=== PATIENT | male | born 1950 | race Caucasian/White ===

== ENCOUNTER → 2019-08-08 13:46 | Outpatient (BNVA) | payer MEDICARE, SELFPAY | PROVIDERS: Family Provider Family Medicine; PCP Family Medicine; Visit Provider Nurse Practitioner Family | DX: C67.8 Malignant neoplasm of overlapping sites of bladder (principal); N28.9 Disorder of kidney and ureter, unspecified | CPT/HCPCS: 81001 ==

== ENCOUNTER 2019-12-18 15:19 | Emergency (ER) | payer MEDICARE, SELFPAY ==
[2019-12-18 15:36] VITALS: BMI 35.0
[2019-12-18 15:48] VITALS: BP 179/76; PULSE 66; RESP 18; TEMP 36.9; O2SAT 98
--- NOTE | 2019-12-18 15:56 | CTR_ITS ---
PROCEDURE INFORMATION: Exam: CT Abdomen And Pelvis Without Contrast Exam date and time: 12/18/2019 5:22 PM Age: 69 years old Clinical indication: Abdominal pain; Prior surgery; Additional info: Rlq pain TECHNIQUE: Imaging protocol: Computed tomography of the abdomen and pelvis without contrast. Radiation optimization: All CT scans at this facility use at least one of these dose optimization techniques: automated exposure control; mA and/or kV adjustment per patient size (includes targeted exams where dose is matched to clinical indication); or iterative reconstruction. COMPARISON: CT abdomen pelvis con [id number] 07/11/2019 12:20 PM RADIATION DOSE METRICS: Total DLP: 1486.01 mGy-cm FINDINGS: Lungs: Mild atelectasis. Liver: Normal. No mass. Gallbladder and bile ducts: Cholecystectomy. The bile ducts are normal. Pancreas: Atrophic pancreas. Spleen: Calcified granuloma in the spleen. Adrenals: Normal. No mass. 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 Stomach and bowel: Mild diverticulosis of the sigmoid colon. Scattered gas and stool throughout the colon to the rectum. Stomach and small bowel are unremarkable. Appendix: The appendix is normal. Intraperitoneal space: Unremarkable. No free air. No significant fluid collection. Retroperitoneal space: Multiple surgical clips in the right retroperitoneum. Vasculature: Unremarkable. No abdominal aortic aneurysm. Lymph nodes: Subcentimeter retroperitoneal and iliac chain lymph nodes are most likely reactive. Bladder: Unremarkable as visualized. Reproductive: Unremarkable as visualized. Bones/joints: Degenerative changes of the hips and spine. No compression fracture. Soft tissues: Fat containing left inguinal hernia. Diastasis rectus with atrophy of the right abdominus rectus muscles. CT/CT abdomen pelvis con [id number] IMPRESSION: 1. No acute abnormality identified in the abdomen or pelvis. 2. Mild diverticulosis of the distal colon. 3. Stool burden in the colon could indicate mild constipation in the right clinical setting. 4. Left renal cyst. This requires no follow-up. COMMENTS: Consistent with the [employer]'s Incidental Findings Committee white paper (J Am Julia Radiol 2018): Any incidental cystic renal lesion classified in this report as too small to characterize or simple appearing is likely a benign cyst. No follow-up imaging is recommended for these lesions per consensus recommendations based on imaging criteria. Radiation Dose CTDIVOL = (mGy): DLP = 1486.01 (mGy-cm)
--- NOTE | 2019-12-18 16:27 | ED_ITS ---
HPI - Abdominal Pain General: Chief Complaint: Abdominal Pain Stated Complaint: abd pain Time Seen by Provider: 12/18/19 15:39 History of Present Illness: HPI narrative: Patient is a 69 year old male presenting with right lower quadrant pain. he reports a dull pain for about 3 days and today it is sharp and severe. No fever, no vomiting, no diarrhea or constipation. No urinary symptoms. He reports radiation to his inner thigh on the right - not to his testicle. No pain in his back. He says it reminds him of when he had a hernia repair many years ago. Also has been having right arm pain for some time - has to have carpal tunnel surgery, but now he is having pain from his shoulder down the whole arm. He notes that he can't use his left arm so uses his right arm for everything and thinks he might have pulled something. 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 about 4 years ago) Onset (ago): day(s) (3) Pain Consistency: constant Location: RLQ Severity: severe Quality: stabbing Radiation: other (right inner thigh) Migration to: no migration Exacerbating factors: movement Relieving factors: nothing Associated Symptoms: Denies anorexia, change in bowel habits, change in stool character, chills, dysuria, fever(s), hematuria, nausea and vomiting Review of Systems General: Reports: 10 or more systems reviewed and unremarkable except in HPI and below Const: Denies: fever(s), chills or change in weight ENMT: Denies: odynophagia Card: Denies: chest pain or palpitations Resp: Denies: dyspnea, productive cough or non-productive cough GI: Reports: abdominal pain; Denies: nausea, vomiting, change in bowel habits or change in stool character : Denies: flank pain, difficulty urinating, dysuria or hematuria Musc: Reports: extremity pain (right arm); Denies: back pain Neuro: Denies: headache(s), numbness in extremities or weakness in extremities Taj/Lymph: Denies: easy bruising or easy bleeding PFSH ED PFSH: Medical History Lesion of left [place] kidney 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 Surgical History H/O right nephrectomy H/O transurethral destruction of bladder lesion TURBT Family History Father , at age 63 Cancer Social History Smoking and tobacco status: former smoker Alcohol intake: never Adopted: No Caregiver/support person: No Lives independently: No Household members: spouse Marital status: Current occupational status: disabled Physical Exam Const: COMMON NORMALS: no acute distress, patient oriented x3 and alert GENERAL APPEARANCE: cooperative and anxious NUTRITIONAL APPEARANCE: obese Eye: COMMON NORMALS: Equal, round and reactive pupils present and EOMs intact bilaterally GENERAL EYE: appearance normal, both eyes and all related structures PUPIL: Yes Equal, round and reactive pupils present Chest: COMMONS NORMALS: normal inspection of the chest Resp: COMMON NORMALS: normal respiratory effort, No use of accessory muscles and clear to auscultation bilaterally AUSCULTATION: clear to auscultation bilaterally Cardio: COMMON NORMALS: regular rate, regular rhythm and No murmurs present (Cardio) RATE: regular rate RHYTHM: regular rhythm GI: COMMON NORMALS: Normal to inspection, nondistended, normoactive bowel sounds present and No hepatosplenomegaly present PALPATION: Yes Tenderness to palpation present (GI) Details: RLQ (point tender) and Yes No hepatosplenomegaly present : COMMON NORMALS: Yes Testes normal, Yes scrotum normal and Yes No hernias present (tender in the right inguinal canal but no mass or hernia appreciated) Neuro: COMMON NORMALS: patient oriented x3 SENSORIUM/ORIENTATION: Yes alert Course ED course: Labs unremarkable - CT with no explanation for the RLQ pain. Normal appendix. no hernia. He continued to complain of pain - mainly his right arm at this time. Suspect a cervical radiculopathy based on his description of the pain - but could also be a rotator cuff issue. Reevaluation(s): Reevaluation #1: feeling better. Feels comfortable to go home. He is seeing his PCP soon regarding the arm pain. He will return if worsening of his abdominal symptoms. Time: 19:24 Vital Signs: Vital signs: Vital Signs Temperature 98.4 F 12/18/19 15:48 Pulse Rate 74 12/18/19 17:19 Respiratory Rate 18 12/18/19 18:42 Blood Pressure 150/93 12/18/19 17:19 Pulse Oximetry 98 12/18/19 18:42 MDM - Abdominal Pain Lab Data: Labs: Lab Results 12/18/19 12/18/19 12/18/19 Range/Units 16:15 16:15 16:15 WBC 8.6 (4.0-10.0) 10^3/ uL RBC 4.95 (4.1-5.3) 10^6/u L Hgb 14.2 (11.7-16.6) g/dL Hct 45.6 (42.0-52.0) % MCV 92.1 (80-94) fL MCH 28.7 (28.0-34.0) pg MCHC 31.1 (30.0-36.0) g/dL RDW 13.8 (12.1-15.1) % Plt Count 224 (130-400) 10^3/c mm MPV 11.3 H (7.4-10.4) fL Neut % (Auto) 75.3 % Lymph % (Auto) 13.2 % [place] % (Auto) 7.4 % Eos % (Auto) 3.0 % Baso % (Auto) 0.5 % Neut # (Auto) 6.5 (1.8-7.7) 10^3/u L Lymph # (Auto) 1.1 (0.8-4.8) 10^3/u L [place] # (Auto) 0.6 (0.2-0.9) 10^3/u L Eos # (Auto) 0.3 (0.0-0.8) 10^3/u L Baso # (Auto) 0.0 (0.0-0.1) 10^3/u L Nucleated RBC % (a uto) 0 % Nucleated RBCs # 0.0 /100WBC Sodium 136 (136-145) mmol/L Potassium 4.9 (3.5-5.1) mmol/L Chloride 101 (98-107) mmol/L Carbon Dioxide 24 (22-29) mmol/L Anion Gap 15.9 (5-19) BUN 19 (8-23) mg/dL Creatinine 1.2 (0.7-1.2) mg/dL GFR Calculation 60.2 L (90-130) mL/min Glucose 113 (65-115) mg/dL Calculated Osmolal ity 279 L (285-295) mOsm/k g Lactate 1.3 (0.5-2.2) mmol/L Calcium 8.8 (8.5-10.5) mg/dL Total Bilirubin 0.6 (0.15-1.2) mg/dL AST 21 (0-40) U/L ALT 25 (0-41) U/L Alkaline Phosphata se 74 (40-130) IU/L Total Protein 7.6 (6.6-8.7) g/dL Albumin 4.0 (3.5-5.2) g/dL Globulin 3.6 (1.3-4.6) g/dL Lipase 11 L (13-60) U/L Urine Color (Yellow) Urine Appearance (CLEAR) Urine pH (5-7) Ur Specific Gravit y (1.005-1.030) Urine Protein (Negative) Urine Glucose (UA) (Normal) Urine Ketones (Negative) Urine Blood (Negative) Urine Nitrate (Negative) Urine Bilirubin (NEGATIVE) Urine Urobilinogen (Negative) mg/dL Ur Leukocyte Caitie ase (Negative) 12/18/19 Range/Units 16:31 WBC (4.0-10.0) 10^3/ uL RBC (4.1-5.3) 10^6/u L Hgb (11.7-16.6) g/dL Hct (42.0-52.0) % MCV (80-94) fL MCH (28.0-34.0) pg MCHC (30.0-36.0) g/dL RDW (12.1-15.1) % Plt Count (130-400) 10^3/c mm MPV (7.4-10.4) fL Neut % (Auto) % Lymph % (Auto) % [place] % (Auto) % Eos % (Auto) % Baso % (Auto) % Neut # (Auto) (1.8-7.7) 10^3/u L Lymph # (Auto) (0.8-4.8) 10^3/u L [place] # (Auto) (0.2-0.9) 10^3/u L Eos # (Auto) (0.0-0.8) 10^3/u L Baso # (Auto) (0.0-0.1) 10^3/u L Nucleated RBC % (a uto) % Nucleated RBCs # /100WBC Sodium (136-145) mmol/L Potassium (3.5-5.1) mmol/L Chloride (98-107) mmol/L Carbon Dioxide (22-29) mmol/L Anion Gap (5-19) BUN (8-23) mg/dL Creatinine (0.7-1.2) mg/dL GFR Calculation (90-130) mL/min Glucose (65-115) mg/dL Calculated Osmolal ity (285-295) mOsm/k g Lactate (0.5-2.2) mmol/L Calcium (8.5-10.5) mg/dL Total Bilirubin (0.15-1.2) mg/dL AST (0-40) U/L ALT (0-41) U/L Alkaline Phosphata se (40-130) IU/L Total Protein (6.6-8.7) g/dL Albumin (3.5-5.2) g/dL Globulin (1.3-4.6) g/dL Lipase (13-60) U/L Urine Color Yellow (Yellow) Urine Appearance Clear (CLEAR) Urine pH 5 (5-7) Ur Specific Gravit y 1.010 (1.005-1.030) Urine Protein Neg (Negative) Urine Glucose (UA) Norm (Normal) Urine Ketones Negative (Negative) Urine Blood Neg (Negative) Urine Nitrate Negative (Negative) Urine Bilirubin Neg (NEGATIVE) Urine Urobilinogen Norm (Negative) mg/dL Ur Leukocyte Caitie ase Negative (Negative) Discharge Plan Discharge Patient Disposition: Home, Self-Care Clinical Impression: Arm pain, right Abdominal pain Qualifiers: Abdominal location: right lower quadrant Qualified Code(s): R10.31 - Right lower quadrant pain Condition: Stable Prescriptions: No Action tramadol 50 mg tablet 50 mg PO DAILY PRN (Reason: Pain) RF: 0 gabapentin 400 mg capsule 400 mg PO TID RF: 0 lisinopril 20 mg tablet 20 mg PO DAILY RF: 0 glipizide 5 mg PO BID RF: 0 baclofen 10 mg tablet 10 mg PO TID RF: 0 aspirin 162.5 mg capsule,extended release 24hr 162.5 mg PO QAM RF: 0 Discharge Orders: Discharge Order (Routine); Ordered 12/18/19 Ordered By: Lanny Jones Referrals: Terence Nunez [Primary Care Provider] - Discharge Diet: Usual diet Discharge Activity: Resume usual activity Patient Instructions: Cholecystitis (ED), Abdominal Pain (ED) Activity Restrictions/Additional Instructions: Return to the ED if fever, worse pain, vomiting or difficulty urinating. Coding Level of Care Code ED Maritime Pilot for Chg Fwd Exam Detailed
[2019-12-18 16:36] LABS: Basophils % 0.5 %; Eosinophils # 0.3 10^3/uL (0.0-0.8); Hematocrit 45.6 % (42.0-52.0); Hemoglobin 14.2 g/dL (11.7-16.6); Lymphocytes # 1.1 10^3/uL (0.8-4.8); Lymphocytes % 13.2 %; Mean Corpuscular HGB Conc 31.1 g/dL (30.0-36.0); Mean Corpuscular Hemoglobin 28.7 pg (28.0-34.0); Mean Corpuscular Volume 92.1 fL (80-94); Mean Platelet Volume 11.3 fL (7.4-10.4); Monocytes # 0.6 10^3/uL (0.2-0.9); Monocytes % 7.4 %; Neutrophils # 6.5 10^3/uL (1.8-7.7); Neutrophils % 75.3 %; Nucleated Red Blood Cells % 0 %; Platelet Count 224 10^3/cmm (130-400); Red Blood Count 4.95 10^6/uL (4.1-5.3); Red Cell Distribution Width 13.8 % (12.1-15.1); White Blood Count 8.6 10^3/uL (4.0-10.0)
[2019-12-18 16:44] LABS: Add Urine Microscopic? NO
[2019-12-18 16:46] VITALS: RESP 18; O2SAT 96
[2019-12-18] MEDS: HYDROmorphone 1 mg/mL INJ 1 mL 0.5 MG IVP ×2 (16:46→18:42)
[2019-12-18] MEDS: ondansetron 2 mg/ML SDV 2 mL 4 MG IVP (16:46)
[2019-12-18 16:48] LABS: Bilirubin Urine Neg (NEGATIVE); Blood Urine Neg (Negative); Glucose Urine UA Norm (Normal); Ketones Urine Negative (Negative); Leukocyte Esterase Urine Negative (Negative); Nitrate Urine Negative (Negative); Protein Urine Neg (Negative); Urine Appearance Clear (CLEAR); Urine Color Yellow (Yellow); Urobilinogen Urine Norm (Negative); pH Urine 5 (5-7)
[2019-12-18 16:51] LABS: Alanine Aminotransferase 25 U/L (0-41); Alkaline Phosphatase 74 IU/L (40-130); Anion Gap 15.9 (5-19); Aspartate Amino Transferase 21 U/L (0-40); Blood Urea Nitrogen 19 mg/dL (8-23); Calcium 8.8 mg/dL (8.5-10.5); Carbon Dioxide 24 mmol/L (22-29); Chloride 101 mmol/L (98-107); Globulin 3.6 g/dL (1.3-4.6); Glomerular Filtration Rate 60.2 mL/min (90-130); Glucose 113 mg/dL (65-115); Lipase 11 U/L (13-60); Osmolality Calculated 279 mOsm/kg (285-295); Potassium 4.9 mmol/L (3.5-5.1); Sodium 136 mmol/L (136-145); Total Bilirubin 0.6 mg/dL (0.15-1.2); Total Protein 7.6 g/dL (6.6-8.7)
[2019-12-18 16:52] LABS: Lactate (Lactic Acid level) 1.3 mmol/L (0.5-2.2)
[2019-12-18 17:19] VITALS: BP 150/93; PULSE 74; RESP 23; O2SAT 92
[2019-12-18 18:42] VITALS: RESP 18; O2SAT 98
[2019-12-18 19:34] VITALS: BP 189/74; PULSE 58; RESP 16
== END 2019-12-18 19:45 | disposition home or self-care (01) ==
PROVIDERS: Emergency Provider Emergency Medicine; PCP Family Medicine
DX: R10.31 Right lower quadrant pain (principal); M79.601 Pain in right arm; Z79.82 Long term (current) use of aspirin; Z79.84 Long term (current) use of oral hypoglycemic drugs; Z85.51 Personal history of malignant neoplasm of bladder; Z85.54 Personal history of malignant neoplasm of ureter; Z90.5 Acquired absence of kidney; Z87.891 Personal history of nicotine dependence
CPT/HCPCS: 12345; 36415; 74176; 80053; 81003; 83605; 83690; 85025; 96374; 96375; 96376; 99282; 99283; J1170; J2405

== ENCOUNTER 2021-01-29 14:31 | Outpatient (CLI) | payer MEDICARE, SELFPAY ==
--- NOTE | 2021-01-29 14:30 | XR_ITS ---
WS: [id number] Chest 2 views, 01/29/2021 Clinical Data: BLADDER CANCER Comparison: AP and lateral chest, 10/27/2018. Findings: No nodules, masses or effusions are seen. The heart is normal. The pulmonary vascularity is not increased. No pneumonia or pneumothorax is seen. Right diaphragm is slightly elevated. The aorti c arch and descending aorta show tortuosity. XR/XR chest 2V* [id number] Impression: Atherosclerosis.
[2021-01-29 15:38] LABS: Basophils # 0.1 10^3/uL (0.0-0.1); Basophils % 0.6 %; Eosinophils # 0.5 10^3/uL (0.0-0.8); Eosinophils % 5.4 %; Hematocrit 45.6 % (42.0-52.0); Hemoglobin 14.2 g/dL (11.7-16.6); Lymphocytes # 1.1 10^3/uL (0.8-4.8); Lymphocytes % 12.6 %; Mean Corpuscular HGB Conc 31.1 g/dL (30.0-36.0); Mean Corpuscular Hemoglobin 28.2 pg (28.0-34.0); Mean Corpuscular Volume 90.7 fL (80-94); Monocytes # 0.7 10^3/uL (0.2-0.9); Monocytes % 7.8 %; Neutrophils # 6.28 10^3/uL (1.8-7.7); Neutrophils % 73.1 %; Nucleated Red Blood Cells % 0 %; Platelet Count 238 10^3/cmm (130-400); Red Blood Count 5.03 10^6/uL (4.1-5.3); Red Cell Distribution Width 13.5 % (12.1-15.1); White Blood Count 8.6 10^3/uL (4.0-10.0)
[2021-01-29 16:06] LABS: Alanine Aminotransferase 14 U/L (0-41); Albumin Level 3.8 g/dL (3.5-5.2); Alkaline Phosphatase 70 IU/L (40-130); Anion Gap 11.9 (5-19); Aspartate Amino Transferase 15 U/L (0-40); Blood Urea Nitrogen 18 mg/dL (8-23); Calcium 8.5 mg/dL (8.5-10.5); Carbon Dioxide 28 mmol/L (22-29); Chloride 102 mmol/L (98-107); Globulin 3.5 g/dL (1.3-4.6); Glomerular Filtration Rate 50.2 mL/min (90-130); Glucose 140 mg/dL (65-115); Osmolality Calculated 288 mOsm/kg (285-295); Potassium 4.9 mmol/L (3.5-5.1); Sodium 137 mmol/L (136-145); Total Bilirubin 0.7 mg/dL (0.15-1.2); Total Protein 7.3 g/dL (6.6-8.7)
== END 2021-01-29 14:32 | disposition home or self-care (01) ==
LOC: RAD 14:41
PROVIDERS: PCP Family Medicine; Visit Provider Urology
DX: C67.8 Malignant neoplasm of overlapping sites of bladder (principal); I70.90 Unspecified atherosclerosis
CPT/HCPCS: 36415; 71046; 80053; 81003; 85025

== ENCOUNTER 2022-04-27 15:02 | Emergency (ER) | payer OTHER, SELFPAY ==
[2022-04-27 15:15] VITALS: BP 158/80; PULSE 63; RESP 16; TEMP 36.7; O2SAT 99; BMI 35.0
--- NOTE | 2022-04-27 15:31 | XR_ITS ---
WS: [id number] Exam: XR wrist RT min 3V* [id number] Date/Time of Exam: 04/27/2022 3:33 PM Reason For Exam: Fall No fracture or dislocation. Articular relationships are intact. Minimal dorsal soft tissue swelling. A partially visualized osseous lesion seen in the head of the third metacarpal may represent an encho ndroma. XR/XR wrist RT min 3V* [id number] IMPRESSION: 1. No acute wrist fracture or dislocation.
--- NOTE | 2022-04-27 15:39 | W.ED.EXTPRO ---
HPI - Extremity Problem General: Chief complaint: Extremity Injury, Upper Stated complaint: Right wrist pain Time Seen by Provider: 04/27/22 15:34 History of Present Illness: Patient is a 72-year-old male comes to the ED with right wrist pain. Patient says approximately 2 months ago he had a fall while transferring from his wheelchair. He fell down landing with his right arm extended. He thought he sprained his right wrist so he has been icing it and taking his prescribed tramadol to help with pain. He was not seen by any provider after injury. He states that his right wrist is still bothering him quite a bit and thinks he might of done more than sprained it. He rates his pain currently an 8 out of 10. He says pain worsens in right wrist and arm when he does any range of motion with right wrist. Denies any other injuries. Associated symptoms: Deny chest pain, fever(s) or rash Review of Systems Const: Denies: fever(s), chills or fatigue Eyes: Denies: change in vision or eye discomfort ENMT: Denies: throat pain, odynophagia, nasal discharge or nasal congestion Card: Denies: chest pain, palpitations, edema, swelling of feet/ankles, dyspnea on exertion or orthopnea Resp: Denies: dyspnea, productive cough or non-productive cough GI: Denies: abdominal pain, nausea, vomiting, diarrhea, constipation or hematochezia : Denies: flank pain, difficulty urinating, dysuria or hematuria Musc: Reports: extremity pain (Right wrist); Denies: neck pain, back pain or extremity swelling Skin/Breast: Denies: rash or new lesions Neuro: Denies: headache(s), numbness in extremities or weakness in extremities PFSH ED PFSH: Medical History Lesion of left [place] kidney 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 Social History Smoking and tobacco status: never smoked Alcohol intake: never Adopted: No Caregiver/support person: No Lives independently: No Marital status: Current occupational status: disabled History of recent travel: No Physical Exam Const: COMMON NORMALS: no acute distress, patient oriented x3 and alert GENERAL APPEARANCE: cooperative HENMT: COMMON NORMALS: normocephalic HEAD & SCALP: normocephalic MOUTH: Normal oral and palatal mucosa present THROAT: posterior oropharynx normal and uvula midline Neck/C-Spine: COMMON NORMALS: supple GENERAL: Yes normal visual inspection Resp: COMMON NORMALS: normal respiratory effort, No retractions, No use of accessory muscles and clear to auscultation bilaterally AUSCULTATION: clear to auscultation bilaterally Cardio: COMMON NORMALS: regular rate, regular rhythm, S1 normal heart sound present, S2 normal heart sound present, No gallops present (Cardio), No clicks present (Cardio), No murmurs present (Cardio) and Peripheral pulses 2+ throughout RATE: regular rate RHYTHM: regular rhythm HEART SOUNDS: S1 normal heart sound present and S2 normal heart sound present PERIPHERAL PULSES: Peripheral pulses 2+ throughout GI: COMMON NORMALS: Normal to inspection, nondistended, normoactive bowel sounds present, Soft to palpation, non-tender and no masses PALPATION: Yes Soft to palpation : COMMON NORMALS: Yes no CVA tenderness BLADDER/KIDNEY EXAM: Yes no CVA tenderness Back/Pelvis: COMMON NORMALS: no CVA tenderness Extremity: NARRATIVE EXTREMITY EXAM: Right wrist?no visible deformity noted. Neurovascular intact distally. Full range of motion. Tenderness to palpation throughout wrist. Neuro: COMMON NORMALS: patient oriented x3 SENSORIUM/ORIENTATION: Yes alert GAIT: Yes Normal gait present Skin: GENERAL SKIN EXAM: dry skin Course Vital Signs: Vital signs: Vital Signs Temperature 98.0 F 04/27/22 15:15 Pulse Rate 63 04/27/22 15:15 Respiratory Rate 16 04/27/22 15:15 Blood Pressure 158/80 04/27/22 15:15 Pulse Oximetry 99 04/27/22 15:15 Oxygen Delivery Me thod 04/27/22 15:15 MDM - Extremity (Nontraumatic) Medical Decision Making Patient is a 72-year-old male who had a fall approximately 2 months ago number he landed on right arm hurting right wrist. Denies any head trauma or loss of consciousness at that time. He did not get checked out and thought he just sprained his wrist. He has continued to have right wrist pain for the past 2 months. Vitals are stable. Exam of right wrist shows no deformity, erythema or swelling. He has some tenderness throughout the wrist. Neurovascular tact. Full range of motion. X-ray of right wrist showed no acute fractures or dislocations. He was diagnosed with right wrist pain and discharged home. Told to follow-up with PCP within the next week for reevaluation. Return to ED precautions given. Patient understood and agreed with plan. Lab Data Radiology Impressions Wrist X-Ray 04/27/22 15:31 IMPRESSION: 1. No acute wrist fracture or dislocation. Discharge Plan Discharge Patient Disposition: Home Clinical Impression: Right wrist pain Condition: Stable Prescriptions: No Action tramadol 50 mg tablet 50 mg PO DAILY PRN (Reason: Pain) gabapentin 400 mg capsule 400 mg PO TID lisinopril 20 mg tablet 20 mg PO DAILY glipizide 5 mg PO BID Rx Instructions: 1 BID baclofen 10 mg tablet 10 mg PO TID aspirin 162.5 mg capsule,extended release 24hr 162.5 mg PO QAM Januvia 100 mg tablet 100 mg PO DAILY sildenafil [Viagra] 100 mg tablet 100 mg PO DAILY PRN Rx Instructions: administer 30 minutes to 4 hours before activity cephalexin 500 mg capsule 500 mg PO BID Qty: 30 2RF Discharge Orders: Discharge ED (Routine); Ordered 04/27/22 Ordered By: Marino Wadsworth Referrals: Surekha Lockhart FNP [Primary Care Provider] - Discharge Diet: Regular Discharge Activity: Increase activity as tolerated Patient Instructions: Wrist Injury (ED), Wrist Sprain (ED) Activity Restrictions/Additional Instructions: Follow-up with medical provider as directed in the next 5-7 days for reevaluation. Continue taking previously prescribed meds for pain. Return to the ER or your medical provider if condition worsens. Please read and understand discharge instructions. Thank you for choosing [facility] for your healthcare needs today. Please realize this is an emergency room and that we are providing you with a medical screening exam and this may not be complete and all inclusive of all the testing and or work up that you may need to determine your ailment or severity of your illness. It is very important that you follow up as instructed or that you return to the Emergency Department should you have concerns or if your condition changes or worsens in any way. Coding Level of Care Code ED Marketing Campaign Analyst for Elva Lopez Exam Comprehensive
== END 2022-04-27 16:38 | disposition home or self-care (01) ==
PROVIDERS: Emergency Provider Physician Assistant; PCP Nurse Practitioner Family
DX: M25.531 Pain in right wrist (principal); Z79.84 Long term (current) use of oral hypoglycemic drugs; Z79.82 Long term (current) use of aspirin; Z85.51 Personal history of malignant neoplasm of bladder; Z85.038 Personal history of other malignant neoplasm of large intestine; G82.50 Quadriplegia, unspecified; E11.22 Type 2 diabetes mellitus with diabetic chronic kidney disease; N18.30 Chronic kidney disease, stage 3 unspecified; E11.59 Type 2 diabetes mellitus with other circulatory complications; E78.2 Mixed hyperlipidemia; I25.10 Atherosclerotic heart disease of native coronary artery without angina pectoris
CPT/HCPCS: 73110; 99204; 99283

== ENCOUNTER → 2022-06-16 11:16 | Outpatient (BNVA) | payer OTHER, SELFPAY | PROVIDERS: PCP Nurse Practitioner Family; Referring Provider Nurse Practitioner Family; Visit Provider Podiatrist Foot & Ankle Surgery | DX: E11.42 Type 2 diabetes mellitus with diabetic polyneuropathy (principal); L60.3 Nail dystrophy; L60.8 Other nail disorders; L84 Corns and callosities | CPT/HCPCS: 11056; 11721; 99204 ==

== ENCOUNTER → 2022-11-04 13:58 | Outpatient (BNVA) | payer OTHER, SELFPAY | PROVIDERS: PCP Nurse Practitioner Family; Visit Provider Thoracic Surgery (Cardiothoracic Vascular Surgery) | DX: I96 Gangrene, not elsewhere classified (principal); E11.622 Type 2 diabetes mellitus with other skin ulcer; L97.812 Non-pressure chronic ulcer of other part of right lower leg with fat layer exposed; Z79.899 Other long term (current) drug therapy; E78.2 Mixed hyperlipidemia | CPT/HCPCS: 36415; 80053; 82306; 82607; 82746; 83090; 83735; 83921; 84439; 84443; 84481; 85025; 99212 ==

== ENCOUNTER → 2023-01-18 12:46 | Outpatient (BNVA) | payer OTHER, SELFPAY | PROVIDERS: PCP Nurse Practitioner Family; Visit Provider Internal Medicine Cardiovascular Disease | DX: E11.42 Type 2 diabetes mellitus with diabetic polyneuropathy (principal); E78.2 Mixed hyperlipidemia; N31.9 Neuromuscular dysfunction of bladder, unspecified; N28.9 Disorder of kidney and ureter, unspecified; Z79.4 Long term (current) use of insulin | CPT/HCPCS: 99204 ==

== ENCOUNTER 2023-02-09 11:22 | Outpatient (CLI) | payer OTHER, SELFPAY ==
--- NOTE | 2023-02-09 12:15 | USCV_ITS ---
Miguel Nathan Age: 72 Gender: M : 1950 Exam Date: 02/09/2023 11:51 Ordering Phys: Gulshan Camacho MD (Andy) ([email or web address]) Technologist: Exam Location: [facility] Indication: HISTORY: PROCEDURES: Bilateral duplex Venous Insufficiency study of the Deep and Superficial systems was carried out according to normal protocol with the patient in supine positon for deep system and dependent position for the superficial system. FINDINGS: Left femoral and popliteal veins were found to be partially compressible with a sluggish blood flow. Spectral analysis of Doppler signals demonstrates normal response to compression maneuvers indicating patency without obstruction in the other vessels. Reflux determinations were made with the patient in the dependent position, the weight being on the contralateral leg. There is significant bilateral reflux worse on the right. CONCLUSIONS 1. 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 2. Significant venous reflux of greater than 500 ms were noted at the greater saphenous vein distal to the saphenofemoral junction, proximal and mid segments on the right side. The segments were greater than 1 cm deep from the surface. The segments were measuring 0.71 to 0.89 cm in diameter. 3. Significant venous reflux of greater than 500 ms were noted at the below-knee segment of the greater saphenous vein on the left side. The segment was found to be very superficial.(0.49 cm deep from the surface) Dr Edwin Arnett MD [facility] (Electronically Signed) Final Date: 11 February 2023 22:52 S
== END 2023-02-09 11:23 | disposition home or self-care (01) ==
PROVIDERS: PCP Nurse Practitioner Family; Visit Provider Thoracic Surgery (Cardiothoracic Vascular Surgery)
DX: E11.42 Type 2 diabetes mellitus with diabetic polyneuropathy (principal); L60.3 Nail dystrophy; L60.8 Other nail disorders; L84 Corns and callosities; Z79.4 Long term (current) use of insulin; I82.403 Acute embolism and thrombosis of unspecified deep veins of lower extremity, bilateral
CPT/HCPCS: 11056; 11721; 93970; 99212

== ENCOUNTER 2023-02-09 13:18 | Emergency (ER) | payer OTHER, SELFPAY ==
[2023-02-09 13:49] VITALS: BP 160/84; PULSE 67; RESP 16; TEMP 36.8; O2SAT 99; BMI 34.7
--- NOTE | 2023-02-09 14:48 | W.ED.EXTPRO ---
HPI - Extremity Problem General: Chief complaint: Extremity Problem,Nontraumatic Stated complaint: Left leg pain, and swelling, Ayden Tapia Time Seen by Provider: 02/09/23 14:24 History of Present Illness: Patient ultrasound this morning that showed he had a blood clot in his left upper thigh. Patient was sent here for further evaluation and treatment. [facility] and would like any further treatment and evaluation at the [facility] if possible. Patient says he was sent by Dr. Camacho for the ultrasound secondary to venous insufficiency and vascular disease. Patient says both he has a history of both feet going blue and purple and and being really cold. She does not currently have any symptoms. Patient is on no anticoagulation and has no history of prior DVTs. Patient is insulin-dependent diabetic. 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 Social History Smoking and tobacco status: never smoked Alcohol intake: never Substance/Drug Use: never Adopted: No Caregiver/support person: No Lives independently: No Marital status: Current occupational status: disabled Physical Exam Const: COMMON NORMALS: no acute distress, average body habitus, patient oriented x3, no limitations, healthy appearing, alert and well nourished HENMT: COMMON NORMALS: normocephalic, atraumatic, hearing grossly normal bilaterally, external ears normal, Normal external nose present and moist oral mucous membranes HEAD & SCALP: normocephalic and atraumatic NOSE: Normal external nose present EXTERNAL EAR: Yes external ears normal Neck/C-Spine: COMMON NORMALS: full ROM, no lymphadenopathy, supple, no meningeal signs, no JVD and Thyroid normal THYROID: Thyroid normal Lymph: LYMPHATIC: no lymphadenopathy noted Chest: COMMONS NORMALS: normal inspection of the chest and normal palpation of entire chest wall Resp: COMMON NORMALS: normal respiratory effort, No retractions, No use of accessory muscles and clear to auscultation bilaterally AUSCULTATION: clear to auscultation bilaterally Cardio: COMMON NORMALS: no JVD, regular rate, regular rhythm, S1 normal heart sound present, S2 normal heart sound present, No gallops present (Cardio), No clicks present (Cardio) and No murmurs present (Cardio) RATE: regular rate RHYTHM: regular rhythm HEART SOUNDS: S1 normal heart sound present and S2 normal heart sound present GI: COMMON NORMALS: Normal to inspection, nondistended, normoactive bowel sounds present, Soft to palpation, non-tender, No hepatosplenomegaly present and no masses PALPATION: Yes Soft to palpation and Yes No hepatosplenomegaly present Neuro: COMMON NORMALS: patient oriented x3 SENSORIUM/ORIENTATION: Yes alert MENINGEAL SIGNS: Yes no meningeal signs Course Vital Signs: Vital signs: Vital Signs Temperature 98.2 F 02/09/23 13:49 Pulse Rate 67 02/09/23 13:49 Respiratory Rate 16 02/09/23 13:49 Blood Pressure 160/84 02/09/23 13:49 Pulse Oximetry 99 02/09/23 13:49 Oxygen Delivery Me thod Room Air 02/09/23 13:49 MDM - Extremity (Nontraumatic) Medical Decision Making Patient presents to the ER with complaints of left DVT and upper thigh. motor vehicle technician came over and told me that patient does have a thrombus in his left femoral vein down to his popliteal vein. But the study was done as a different kind of study will not be read till after 5 PM tonight. We will start patient on Xarelto with a coupon so he can get his first month for free until the [facility] decides which medicine they want him on and gets him that medicine. Patient is comfortable with this idea. Patient will have the further work-up per the [facility] such as carotid artery ultrasound, echo, etc. Differential Diagnosis Likely deep vein thrombosis of lower extremity; Unlikely herpes zoster, gout, cellulitis, superficial thrombophlebitis, deep venous thrombosis of upper extremity or lower extremity edema Medical Records I reviewed the patient's medical records. Lab Data I reviewed the patient's lab results. Discharge Plan Discharge Patient Disposition: Home Clinical Impression: Deep vein thrombosis of lower extremity Qualifiers: Affected thrombotic vein of extremity: femoral Chronicity: acute Laterality: left Qualified Code(s): I82.412 - Acute embolism and thrombosis of left femoral vein Condition: Stable Prescriptions: New Xarelto 15 mg tablet 15 mg PO BID 21 Days Qty: 42 0RF Rx Instructions: must administer with a meal/food No Action tramadol 50 mg tablet 50 mg PO DAILY PRN (Reason: Pain) baclofen 10 mg tablet 10 mg PO TID insulin glargine [Lantus U-100 Insulin] 100 unit/mL solution 65 unit SUBCUT DAILY glipizide 10 mg tablet PO cholecalciferol (vitamin D3) 1,250 mcg (50,000 unit) capsule PO gabapentin 800 mg tablet PO Discharge Orders: Discharge ED (Routine); Ordered 02/09/23 Ordered By: Allan Hensley Referrals: Surekha Lockhart, WELD INSPECTOR [Primary Care Provider] - 1 week Patient Instructions: Deep Vein Thrombosis (ED) Activity Restrictions/Additional Instructions: Please take your medicine as directed, please use the coupon card provided to you in ER. Please follow[facility] with the [facility] for further evaluation and treatment of your DVT. Coding Level of Care Code ED Emergency Manager for Elva Lopez
== END 2023-02-09 15:39 | disposition home or self-care (01) ==
PROVIDERS: Emergency Provider Emergency Medicine; PCP Nurse Practitioner Family
DX: I82.412 Acute embolism and thrombosis of left femoral vein (principal)
CPT/HCPCS: 99283

== ENCOUNTER 2023-03-01 15:44 | Outpatient (CLI) | payer OTHER, SELFPAY ==
--- NOTE | 2023-03-01 | USCV_ITS ---
Jac Miguel Age: 72 Gender: M : 1950 Exam Date: 03/01/2023 16:25 Ordering Phys: Cheryl Hernandez TRACK HELPER Technologist: BOB [place] [facility] [place]: Stenosis Risk Factors: Previous Vascular Surgery: Right Brachial BP: / Left Brachial BP: / Right Left Velocity (cm/s) Spectral Plaque Velocity (cm/s) Spectral Plaque Syst/Diast Broadening Syst/Diast Broadening 64.60/ 9.10 Prox CCA 130.10/ 17.10 71.00/ 9.10 Mid CCA 94.70 / 11.80 72.20/ 12.40 Distal CCA 79.20 / 11.70 48.00/ 9.20 Prox ICA 110.40/ 17.10 76.10/ 12.40 Mid ICA 70.70 / 17.10 57.50/ 13.20 Distal ICA 82.30 / 21.80 145.50 ECA 123.60 1.05 ICA/CCA 0.85 Antegrade Vertebral Antegrade 21.40/ 5.60 cm/s 37.90/ 8.50 cm/s Tri Subclavian Tri 97.40 192.6 0 FINDINGS Comparison:. 02/23/15. Limited by body habitus. No significant elevation of systolic or diastolic velocities. Waveforms are normal. No significant amount of calcified plaque or intimal thickening identified. CONCLUSIONS Bilateral ICA stenosis less than 50%. Limited exam by body habitus. Dr. Zahida Simmons DO (Electronically Signed) Final Date: 02 March 2023 10:01 S
--- NOTE | 2023-03-01 16:08 | USR_ITS ---
PROCEDURE INFORMATION: Exam: US Duplex Bilateral Lower Extremity Arteries Exam date and time: 03/01/2023 4:53 PM Age: 72 years old Clinical indication: Pain; Leg, lower; Bilateral; Additional info: Pain, redness, non-healing ulcers TECHNIQUE: Imaging protocol: Real-time ultrasound scan of the arteries of the bilateral lower extremities with 2-D la scale, color Doppler flow and spectral waveform analysis. Images documented and saved. COMPARISON: US renal BI with PV bladder 08/01/2019 10:23 AM FINDINGS: Right common femoral artery: No occlusion or significant stenosis. Normal waveform. Right superficial femoral artery: No occlusion or significant stenosis. Normal waveform. Right popliteal artery: No occlusion or significant stenosis. Normal waveform. Right calf/foot arteries: No occlusion or significant stenosis in the visualized arteries. Normal waveforms. Dorsalis pedis artery is patent. Left common femoral artery: No occlusion or significant stenosis. Normal waveform. Left superficial femoral artery: No occlusion or significant stenosis. Normal waveform. Left popliteal artery: No occlusion or significant stenosis. Normal waveform. Left calf/foot arteries: No occlusion or significant stenosis in the visualized arteries. Normal waveforms. Dorsalis pedis artery is patent. Right MARY: 1.1. Normal. Left MARY was not measured because of the history of recent left lower extremity DVT. US/[place] [id number] IMPRESSION: No stenosis or occlusion.
== END 2023-03-01 15:45 | disposition home or self-care (01) ==
PROVIDERS: PCP Nurse Practitioner Family; Visit Provider Nurse Practitioner Family
DX: E11.42 Type 2 diabetes mellitus with diabetic polyneuropathy (principal); L97.911 Non-pressure chronic ulcer of unspecified part of right lower leg limited to breakdown of skin; M79.605 Pain in left leg
CPT/HCPCS: 93880; 93925

== ENCOUNTER 2023-03-12 11:01 | Outpatient (CLI) | payer OTHER, SELFPAY ==
--- NOTE | 2023-03-12 11:11 | USCV_ITS ---
Miguel Nathan Age: 72 Gender: M : 1950 Exam Date: 03/12/2023 12:02 Ordering Phys: Cheryl HernandezP WALL SCRAPER Technologist: JANET Exam Location: [facility] [place] Indication: PRIOR DVT IN LT LEG BP: 126 / 73 HR: 58 Rhythm: Sinus Technical Quality: Adequate MEASUREMENTS (Male / Female) Normal Values 2D ECHO LV Diastolic Diameter PLAX 4.9 cm 4.2 - 5.9 / 3.9 - 5.3 cm LV Systolic Diameter PLAX 3.4 cm IVS Diastolic Thickness 1.4 cm 0.6 - 1.0 / 0.6 - 0.9 cm IVS Systolic Thickness 1.6 cm LVPW Diastolic Thickness 1.3 cm 0.6 - 1.0 / 0.6 - 0.9 cm LVPW Systolic Thickness 1.8 cm LVOT Diameter 2.2 cm LV Ejection Fraction 2D Teich 57.8 % LV Ejection Fraction MOD 2C 37.8 % LV Ejection Fraction 2C AL 39.3 % LA Diameter 3.6 cm LA Width 2.9 cm LA Height 4.5 cm RA Width 3.8 cm RA Height 4.5 cm Aorta at Sinotubular Diameter 3.2 cm M-MODE Aortic Annulus Diameter 3.4 cm LA Ao Ratio MM 1.4 MV E Point Septal Separation 0.7 cm DOPPLER AV Peak Velocity 145.3 cm/s LVOT Peak Velocity 72.0 cm/s AV Area Cont Eq vti 1.9 cm squared AV Area Cont Eq pk 1.8 cm squared MV Area PHT 2.4 cm squared Mitral E to A Ratio 0.8 MV E' Velocity 34.5 cm/s Mitral E to MV E' Ratio 11.4 Mitral E to LV E' Lateral Ratio 10.0 Mitral E to LV E' Septal Ratio 13.7 TR Peak Velocity 137.8 cm/s TR Peak Gradient 7.6 mmHg TR Mean Velocity 86.9 cm/s TR Mean Gradient 3.5 mmHg TR Velocity Time Integral 36.2 cm TV Peak E Velocity 49.0 cm/s Right Atrial Pressure 3.0 mmHg Pulmonary Artery Systolic Pressu 10.6 mmHg RV Acceleration Time 0.2 s RV Ejection Time 0.3 s RV AcT/ET 0.5 FINDINGS Left Ventricle Normal left ventricular size and systolic function, EF 55%. (visual). No gross wall motion normalities Some features of grade 1 left-ventricular diastolic dysfunction. Right Ventricle Possibly of normal size and ejection fraction Right Atrium Not visualized well Left Atrium Normal left atrial size. Mitral Valve No gross abnormalities noted Aortic Valve No gross abnormalities noted Tricuspid Valve Tricuspid valve not well visualized. Pulmonic Valve Pulmonic valve not well visualized. Pericardium No pericardial effusion. Aorta Normal aortic annulus size. IVC Inferior vena cava not visualized. CONCLUSIONS Technically very difficult study. Study was with the patient sitting on the chair-no apical windows Possibly normal LV size ejection fraction of around 55%. No gross wall motion normalities Some features of grade 1 left-ventricular diastolic dysfunction. The right-sided structures could not be visualized well No pericardial effusion The right ventricular appears to be of normal size and ejection fraction The aortic and mitral valve morphology appears to be within normal limits Dr Edwin Arnett MD FAC (Electronically Signed) Final Date: 12 March 2023 19:52 S
== END 2023-03-12 11:02 | disposition home or self-care (01) ==
LOC: RAD 11:01
PROVIDERS: PCP Nurse Practitioner Family; Visit Provider Nurse Practitioner Family
DX: I82.402 Acute embolism and thrombosis of unspecified deep veins of left lower extremity (principal)
CPT/HCPCS: 93306

== ENCOUNTER 2023-04-09 13:04 | Outpatient (CLI) | payer OTHER, SELFPAY ==
--- NOTE | 2023-04-09 13:35 | USCV_ITS ---
Miguel Nathan Age: 73 Gender: M : 1950 Exam Date: 04/09/2023 13:58 Ordering Phys: Cheryl Hernandez CASH APPLICATIONS REPRESENTATIVE CASH APPLICATIONS REPRESENTATIVE Technologist: Exam Location: [facility] [place] Indication: HISTOY OF DVT. PT REFUSED OPTISON CONTRAST BP: 130 / 75 HR: 57 Rhythm: Sinus Technical Quality: Poor MEASUREMENTS (Male / Female) Normal Values 2D ECHO LVOT Diameter 2.0 cm LV Ejection Fraction MOD 2C 56.8 % LV Ejection Fraction 2C AL 56.2 % LA Diameter 3.4 cm LA Width 4.4 cm LA Height 4.2 cm RA Width 3.7 cm RA Height 5.0 cm Aorta at Sinotubular Diameter 2.6 cm M-MODE Aortic Annulus Diameter 3.2 cm LA Ao Ratio MM 1.0 MV E Point Septal Separation 0.9 cm DOPPLER AV Peak Velocity 136.0 cm/s LVOT Peak Velocity 100.0 cm/s AV Area Cont Eq vti 2.5 cm squared AV Area Cont Eq pk 2.3 cm squared MV Peak Velocity 95.0 cm/s MV Area PHT 2.7 cm squared Mitral E to A Ratio 0.9 MV E' Velocity 44.5 cm/s Mitral E to MV E' Ratio 8.3 Mitral E to LV E' Lateral Ratio 6.9 Mitral E to LV E' Septal Ratio 10.8 TR Peak Velocity 152.2 cm/s TR Peak Gradient 9.3 mmHg TR Mean Velocity 105.4 cm/s TR Mean Gradient 5.1 mmHg TR Velocity Time Integral 44.8 cm TV Peak E Velocity 53.0 cm/s Right Atrial Pressure 8.0 mmHg Pulmonary Artery Systolic Pressu 17.3 mmHg PV Peak Velocity 127.0 cm/s RV Acceleration Time 0.1 s RV Ejection Time 0.4 s RV AcT/ET 0.3 FINDINGS Left Ventricle Examination is technically very poor. Only limited parasternal views are available. This also limits the Doppler interrogation. The ventricular size and function are probably within normal limits as seen by these limited views. Diastolic function cannot be determined. Right Ventricle Right ventricle is not seen. Right Atrium The right atrium is normal in size. Left Atrium The left atrium is normal in size. Mitral Valve Mitral valve was seen in only the parasternal long axis view. There is no obvious mitral regurgitation. Aortic Valve Aortic valve is seen only in the parasternal long axis view. There is no obvious aortic stenosis or regurgitation. Tricuspid Valve Tricuspid valve was not visualized. Pulmonic Valve Pulmonic valve was not visualized. Pericardium Normal pericardium without effusion. Aorta Only the proximal aorta is noted. It is normal in size. IVC IVC is not visualized. CONCLUSIONS Examination is technically very poor. Only limited parasternal views are available. This also limits the Doppler interrogation. The ventricular size and function are probably within normal limits as seen by these limited views. Diastolic function cannot be determined. Patient was offered echo contrast in the form of Optison on. He declined. Previous echo was done less than a month ago. It was similarly poor in quality. No obvious change. Dr. Jeremy Conroy MD (Electronically Signed) Final Date: 09 April 2023 15:39 S
== END 2023-04-09 13:05 | disposition home or self-care (01) ==
PROVIDERS: PCP Family Medicine; Visit Provider Nurse Practitioner Family
DX: Z01.89 Encounter for other specified special examinations (principal); Z86.718 Personal history of other venous thrombosis and embolism
CPT/HCPCS: 93306

== ENCOUNTER → 2023-06-09 13:16 | Outpatient (BNVA) | payer OTHER, SELFPAY | PROVIDERS: PCP Family Medicine; Visit Provider Podiatrist Foot & Ankle Surgery | DX: E11.42 Type 2 diabetes mellitus with diabetic polyneuropathy (principal); L60.3 Nail dystrophy; L60.8 Other nail disorders; L84 Corns and callosities; Z79.4 Long term (current) use of insulin | CPT/HCPCS: 11056; 11721 ==

== ENCOUNTER → 2024-02-01 10:30 | Outpatient (BNVA) | payer OTHER, SELFPAY | PROVIDERS: PCP Family Medicine; Visit Provider Podiatrist Foot & Ankle Surgery | DX: E11.42 Type 2 diabetes mellitus with diabetic polyneuropathy (principal); L60.3 Nail dystrophy; L60.8 Other nail disorders; L84 Corns and callosities; Z79.4 Long term (current) use of insulin | CPT/HCPCS: 11056; 11721 ==

== ENCOUNTER 2024-09-22 15:05 | Outpatient (CLI) | payer OTHER, SELFPAY ==
[2024-09-22 15:26] LABS: Bilirubin Urine Negative (Negative); Blood Urine 3+ (Negative); Glucose Urine UA Negative (Normal); Ketones Urine Negative (Negative); Leukocyte Esterase Urine 3+ (Negative); Nitrate Urine Positive (Negative); Protein Urine 3+ (Negative); Specific Gravity, Urine 1.019 (1.005-1.030); Urine Appearance Turbid (CLEAR); pH Urine 8.5 (5-7)
[2024-09-22 16:24] LABS: Add Urine Microscopic? YES; RBC Urine 25-40 /hpf (0-2); UA Manual Slide Review YES; UA Slide Review UA Slide Review Perf; Urine Color Red (Yellow); WBC Urine 51-100 /hpf (0-5)
[2024-09-22 16:25] LABS: Add Urine Culture? No; Bacteria Urine 2+ /hpf; Calcium Oxalate Crystals Urine 25-40 /hpf; Hyaline Casts Urine 0-4 /lpf; Squamous Epithelial Cell Urine 0-4 /hpf (0-5)
== END 2024-09-22 15:06 | disposition home or self-care (01) ==
LOC: LAB 15:07
PROVIDERS: PCP Family Medicine; Visit Provider Family Medicine
DX: R31.9 Hematuria, unspecified (principal)
CPT/HCPCS: 81001; 87086

== ENCOUNTER → 2024-10-09 09:33 | Outpatient (BNVA) | payer OTHER, SELFPAY | PROVIDERS: PCP Family Medicine; Visit Provider Podiatrist Foot & Ankle Surgery | DX: E11.42 Type 2 diabetes mellitus with diabetic polyneuropathy (principal); L60.3 Nail dystrophy; L84 Corns and callosities; E11.8 Type 2 diabetes mellitus with unspecified complications; L60.8 Other nail disorders; Z79.4 Long term (current) use of insulin | CPT/HCPCS: 11056; 11721 ==

== ENCOUNTER → 2025-01-10 12:06 | Outpatient (BNVA) | payer OTHER, SELFPAY | PROVIDERS: PCP Family Medicine; Referring Provider Nurse Practitioner Family; Visit Provider Internal Medicine | DX: E11.42 Type 2 diabetes mellitus with diabetic polyneuropathy (principal); E11.9 Type 2 diabetes mellitus without complications; E78.2 Mixed hyperlipidemia | CPT/HCPCS: 99214 ==

== ENCOUNTER → 2025-03-15 10:15 | Outpatient (BNVA) | payer OTHER, SELFPAY | PROVIDERS: PCP Family Medicine; Visit Provider Internal Medicine | DX: E11.9 Type 2 diabetes mellitus without complications (principal); E78.2 Mixed hyperlipidemia; Z78.9 Other specified health status | CPT/HCPCS: 99214 ==

== ENCOUNTER 2025-04-30 12:01 | Outpatient (CLI) | payer OTHER, SELFPAY ==
--- NOTE | 2025-04-30 12:16 | XR_ITS ---
WS: [id number] XR shoulder RT min 2V* [id number] REASON FOR EXAM: R SHOULDER PAIN FINDINGS: Significant irregular narrowing of the acromioclavicular joint associated with deformity of the distal clavicle. There is moderate to significant subchondral sclerosis and osteophytosis of the clavicle and acromial process. There is mild downward slant orientation of the acromial process. There is severe narrowing of the glenohumeral joint space with [id number] articulation. There is significant subchondral sclerosis and cystic change in the glenoid and humeral head. There is significant osteophytosis in the humeral head and glenoid. There is a decreased humeral acromial interval with moderate sclerosis and cystic change in the greater biceps tuberosity. 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
== END 2025-04-30 12:02 | disposition home or self-care (01) ==
LOC: RAD 12:07
PROVIDERS: PCP Family Medicine; Visit Provider Nurse Practitioner Family
DX: M19.011 Primary osteoarthritis, right shoulder (principal); M25.711 Osteophyte, right shoulder; M75.101 Unspecified rotator cuff tear or rupture of right shoulder, not specified as traumatic
CPT/HCPCS: 73030